=== PATIENT | male | born 1965 | race Caucasian/White ===

== ENCOUNTER 2024-11-07 13:52 | Emergency (ER) | payer OTHER, SELFPAY ==
[2024-11-07 14:04] VITALS: BP 155/79; PULSE 79; RESP 16; TEMP 36.4; O2SAT 100
--- NOTE | 2024-11-07 14:09 | ED.ANIMALBIT ---
HPI - Animal Bite General Chief Complaint: Animal Bite Stated Complaint: DOG BITE TO EYE Time Seen by Provider: 11/07/24 14:09 Source: patient, RN notes reviewed and old records reviewed Mode of arrival: ambulatory Limitations: no limitations History of Present Illness HPI narrative: 59-year-old male presents to the [facility] after being bit by his family dog to the right side of the face. Puncture wound noted at the cheek and temporal area. Redness, swelling noted. Patient reports that Saturday night he was bit, 2 puncture wounds are noted. Does have full 6 levels of gaze of the eye. Denies any blurry vision or change in vision. Redness, swelling, tenderness, increased warmth both to the eyelid, temporal area and cheek. Onset (ago): day(s) (3) Animal: dog Description of animal: household pet Mechanism: bite Location: face Associated symptoms: erythema Related Data Allergies Allergy/AdvReac Type Severity Reaction Status Date / Time Penicillins Allergy Unknown mild rash Verified 05/03/17 21:20 as a child Review of Systems Review of Systems: All systems reviewed & are unremarkable except as noted in HPI and below Constitutional: Constitutional: Reports no additional constitutional complaints Eyes: Eyes: Reports as per HPI ENT: Reports system reviewed and no additional complaints, except as documented Musculoskeletal: Musculoskeletal: Reports no additional musculoskeletal complaints Integumentary/Breasts: Skin/Breast: Reports as per HPI Neurologic: Reports system reviewed and no additional complaints, except as documented PMFSH Comments At the time of my signature, I reviewed and agree with the nursing past medical, surgical, social, and family history. There is no relevant family history pertinent to the patient complaint. Exam Const: General: cooperative, healthy appearing, comfortable, no acute distress, well developed, alert and well nourished Nutritional Appearance: well nourished Orientation/consciousness: patient oriented x3 Limitations: no limitations HENMT: Head: normal to inspection Head images:  1. puncture wound 2. Puncture wound Other: Significant surrounding erythema, swelling, bruising to the upper cheek, temporal area, eyebrow and upper eyelid Eyes: General: appearance normal, both eyes and all related structures Alignment and Position: alignment normal Periorbital: periorbital findings abnormal right periorbital swelling, periorbital tenderness, periorbital erythema and periorbital ecchymosis Pupils: Equal, round and reactive pupils present and Pupils normal by confrontation EOM: EOMs intact bilaterally and No Nystagmus present Neck: Neck: normal visual inspection, full ROM, no lymphadenopathy and no meningeal signs Chest: Chest palpation & inspection: normal inspection of the chest Resp: Effort & Inspection: normal respiratory effort and able to speak in complete sentences Auscultation: clear to auscultation bilaterally, no crackles, no rales, no rhonchi and no wheezes Cardio: Rate: regular rate Skin: General skin exam: wounds noted Trauma: puncture Full body images:  1. Significant warmth, bruising, swelling. Two puncture wounds noted 1 to the temporal area 1 to the upper cheek. Neuro: General: patient oriented x3, gait normal, moves all extremities and no meningeal signs Cognition (Neuro): normal cognition Speech: normal speech Gait exam (Neuro): Normal gait present Extrem: General: normal to inspection, full ROM, capillary refill normal and normal gait Psych: Appearance: grossly normal and well kempt Mental Status: mental status grossly normal Speech and movement: Normal speech and movement present and Clear speech present Affect: normal affect Attitude: cooperative Course Course Level of Care: Express Care Visit Vital Signs Vital signs: Vital Signs Temperature 97.6 F 11/07/24 14:04 Pulse Rate 79 11/07/24 14:04 Respiratory Rate 16 11/07/24 14:04 Blood Pressure 155/79 H 11/07/24 14:04 Pulse Oximetry 100 11/07/24 14:04 Temperature 97.6 F 11/07/24 14:04 Pulse Rate 79 11/07/24 14:04 Respiratory Rate 16 11/07/24 14:04 Blood Pressure 155/79 H 11/07/24 14:04 Pulse Oximetry 100 11/07/24 14:04 Reviewed Transfer Transfered to: Other ([facility]) Transportation: Other ([facility]ov, ) Transfer rationale: Patient reports 3 days ago was bit by his household dog. Now bruising, swelling, erythema, concern for abscess sending for higher level of care rule out periorbital abscess Accepting physician: Dr Jade [facility] - Animal Bite [facility] Narrative Medical decision making narrative: Patient sitting in exam room. Patient is nontoxic, vitals are stable except blood pressure mildly elevated most likely due to pain. Patient presents 3 days post dog bite. On exam patient with all 6 levels of gaze. Denies any change or blurry vision. Visual acuity on the right side is 20/25. Concerns for periorbital cellulitis or abscess sending for higher level of care Patient's primary is with [facility] medical group, chose to go to [facility] in [facility]. Transfer instructions reviewed with patient to go directly to ER. Do not eat or drink until cleared by ER provider. All questions have been answered, and the patient deny any further questions. Some parts of this dictation were generated by voice recognition software and may contain typographical and/or grammatical inaccuracies. Differential Diagnosis Differential diagnosis: Likely bite by animal and other (Cellulitis, periorbital cellulitis, abscess) Critical Care Time Critical Care Time Critical Care Time: No Discharge Plan Discharge Clinical Impression: Dog bite Patient Disposition: Acute Care Hospital Condition: Stable Instructions: Antibiotic Form Patient Language: Italian Follow-up/Referrals: Deborah,Shawn Mak MD [Primary Care Provider] -
== END 2024-11-07 14:34 | disposition short-term general hospital (02) ==
PROVIDERS: Emergency Provider Nurse Practitioner; PCP Family Medicine Sports Medicine
DX: S01.85XA Open bite of other part of head, initial encounter (principal); W54.0XXA Bitten by dog, initial encounter
CPT/HCPCS: 99202; G0463